=== PATIENT | female | born 1960 | race Caucasian/White ===

== ENCOUNTER → 2024-07-28 08:12 | Outpatient (REF) | payer BC, SELFPAY | LOC: HWWDC 08:12 | PROVIDERS: ATTENDING PHYSICIAN Family Medicine | DX: Z12.31 Encounter for screening mammogram for malignant neoplasm of breast (principal); E78.5 Hyperlipidemia, unspecified | CPT/HCPCS: 75571; 77063; 77067 ==

== ENCOUNTER → 2024-09-08 08:48 | Outpatient (REF) | payer BC, SELFPAY | LOC: HWRAD 08:48 | PROVIDERS: ATTENDING PHYSICIAN Obstetrics & Gynecology; FAMILY PHYSICIAN Family Medicine | DX: M81.0 Age-related osteoporosis without current pathological fracture (principal) | CPT/HCPCS: 77080 ==